=== PATIENT | male | born 1970 | race Caucasian/White ===

== ENCOUNTER 2017-02-04 12:31 | Emergency (ER) | payer MEDICARE, OTHER ==
[~2017-02-04] VITALS: Ht 182.9 cm; Wt 81.6 kg
[2017-02-04] MEDS ORDERED: ONDANSETRON PF 4 MG/2 ML VIAL. IV ONE (13:00)
[2017-02-04] MEDS ORDERED: fentaNYL PF VIAL 100 MCG/2 ML VIAL IV ONE (13:00)
[2017-02-04] MEDS ORDERED: IV NORMAL SALINE 1000ML BAG 1,000 ML IV ONE (13:00)
[2017-02-04] MEDS ORDERED: KETOROLAC TROMETHAMINE 30 MG/ML INJ. IV ONE (13:00)
[2017-02-04 13:05] LABS: BASO % 1 % (0-3); EOS % 3 % (0-3); HEMATOCRIT 46.8 % (39.0-53.0); HEMOGLOBIN 15.8 g/dL (13.0-17.5); LYMPH # 1.9 x10^3/uL (1.0-4.8); LYMPH % 23 % (24-48); MEAN CORPUSCULAR HEMOGLOBIN 30 pg (25-35); MEAN CORPUSCULAR HGB CONC 34 g/dL (31-37); MEAN CORPUSCULAR VOLUME 89 fL (79-100); MONO % 7 % (0-9); NEUT % 66 % (31-73); PLATELET COUNT 278 x10^3/uL (140-400); RED BLOOD COUNT 5.28 x10^6/uL (4.30-5.70); RED CELL DISTRIBUTION WIDTH 13.8 % (11.5-14.5); WHITE BLOOD COUNT 8.3 x10^3/uL (4.0-11.0)
[2017-02-04 13:06] LABS: BASO # 0.1 x10^3/uL (0.0-0.2)
[2017-02-04 13:17] LABS: CALCIUM 8.8 mg/dL (8.5-10.1); CREATININE 1.1 mg/dL (0.7-1.3); GFR 72.1; POTASSIUM 4.2 mmol/L (3.5-5.1)
[2017-02-04 13:22] LABS: ALBUMIN 3.7 g/dL (3.4-5.0); ALBUMIN/GLOBULIN RATIO 1.2 (1.0-1.7); TOTAL BILIRUBIN 0.3 mg/dL (0.2-1.0); TOTAL PROTEIN 6.7 g/dL (6.4-8.2)
[2017-02-04 13:29] LABS: BILIRUBIN,URINE NEGATIVE (NEG); GLUCOSE,URINE NEGATIVE (NEG); NITRITE,URINE NEGATIVE (NEG); PROTEIN,URINE NEGATIVE (NEG-TRACE); UROBILINOGEN,URINE 0.2 mg/dL (0.2 mg/dL)
[2017-02-04 13:35] LABS: BACTERIA,URINE FEW /HPF (0-FEW); SQUAMOUS EPITHELIAL CELL,UR FEW /LPF
--- NOTE | 2017-02-04 13:40 | RAD ---
CT scan of the abdomen and pelvis without contrast 02/04/2017 Clinical history: Left flank pain. Technique: Unenhanced, contiguous, 2 mm axial sections were obtained through the abdomen and pelvis. One or more of the following individualized dose reduction techniques were utilized for this study: 1. Automated exposure control. 2. Adjustment of the mA and/or kV according to patient size. 3. Use of iterative reconstruction technique. Images through the lung bases demonstrate minimal dependent subsegmental atelectasis bilaterally. The liver, spleen, pancreas, adrenal glands and right kidney within normal limits. The left kidney is mildly enlarged. Mild dilatation of the left intrarenal collecting system and left renal pelvis is seen. The left ureter is mildly dilated. Within the proximal/mid left ureter at the L3-4 level a 5 mm ureteral calculus is seen which is causing mild obstruction of the left collecting system. The abdominal aorta tapers normally. The gallbladder is slightly contracted. No free fluid or free air is seen within the abdomen. There is no evidence of bowel obstruction. Air and stool seen throughout the colon. Images through the pelvis demonstrate the urinary bladder distended with urine. Calcifications are seen within the pelvis consistent with phleboliths. No free fluid is seen. Minimal S shaped curvature of the thoracolumbar spine is noted. Degenerative changes are seen involving the thoracic and lumbar spine and both hips. Impression: 5 mm proximal/mid left ureteral calculus is seen which is causing mild obstruction of the left collecting system.
[2017-02-04] MEDS ORDERED: oxyCODONE/APAP 10/325 1 TAB TABLET PO ONE (14:00)
[2017-02-04] MEDS ORDERED: ONDA4TAB7 PO (14:12)
[2017-02-04] MEDS ORDERED: TAMS0.4C97 PO (14:12)
[2017-02-04] MEDS ORDERED: HYDR-963 PO ×2 (14:12→14:16)
[2017-02-04] MEDS ORDERED: ONDA8TAB9 PO (14:12)
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
[2017-02-04 14:30] VITALS: BP 138/90
== END 2017-02-04 14:43 | disposition home or self-care (01) ==
LOC: ER 12:31
DX: N20.1 Calculus of ureter (principal); G89.29 Other chronic pain; Z87.442 Personal history of urinary calculi
CPT/HCPCS: 36415; 74176; 80053; 81001; 85025; 87086; 96361; 96374; 96375; 99285; J1885; J2405; J3010; J7030

== ENCOUNTER 2018-12-29 05:16 | Emergency (ER) | payer MEDICARE ==
[~2018-12-29] VITALS: Ht 182.9 cm; Wt 86.2 kg
[~2018-12-29 05:16] MED LIST: HYDR-3135 PO; ONDA4TAB7 PO; ONDA8TAB9 PO; TAMS0.4C97 PO
[2018-12-29 05:23] VITALS: BP 128/77
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
[2018-12-29 05:35] LABS: BILIRUBIN,URINE NEGATIVE (NEG); COLOR,URINE YELLOW; NITRITE,URINE NEGATIVE (NEG); PROTEIN,URINE NEGATIVE (NEG-TRACE)
[2018-12-29 05:42] LABS: CLARITY,URINE HAZY
[2018-12-29 05:45] LABS: BACTERIA,URINE FEW /HPF (0-FEW)
[2018-12-29 05:46] LABS: WBC,URINE >40 /HPF (0-4)
[2018-12-29] MEDS ORDERED: AZITHROMYCIN 250 MG TABLET. PO ONE (06:00)
[2018-12-29] MEDS ORDERED: cefTRIAXone IM 250 MG VIAL IM ONE (06:00)
[2018-12-29] MEDS ORDERED: CEPH-264 PO (06:05)
== END 2018-12-29 06:20 | disposition home or self-care (01) ==
LOC: ER 05:16
DX: N30.01 Acute cystitis with hematuria (principal); Z20.2 Contact with and (suspected) exposure to infections with a predominantly sexual mode of transmission; G89.29 Other chronic pain; F17.210 Nicotine dependence, cigarettes, uncomplicated; Z87.442 Personal history of urinary calculi
CPT/HCPCS: 81001; 87086; 87491; 87591; 96372; 99284; J0696; Q0144

== ENCOUNTER 2019-08-02 02:02 | Emergency (ER) | payer BC, MEDICARE ==
[~2019-08-02] VITALS: Ht 182.9 cm; Wt 86.4 kg
[~2019-08-02 02:02] MED LIST changes: +CEPH-264 PO
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
--- NOTE | 2019-08-02 02:48 | RAD ---
3 views left elbow AP lateral oblique HISTORY: Pain status post fall The visualized osseous structures appear normal. IMPRESSION: No acute findings. Electronically signed by: Wilder Gilmore III, MD (08/02/2019 2:45 AM) [id number]
[2019-08-02 03:23] VITALS: BP 131/94
[2019-08-02] MEDS ORDERED: KETOROLAC 60 MG/2 ML VIAL. IM ONE (03:30)
== END 2019-08-02 03:25 | disposition home or self-care (01) ==
LOC: ER 02:02
DX: G89.11 Acute pain due to trauma (principal); M25.522 Pain in left elbow; G89.29 Other chronic pain; F12.90 Cannabis use, unspecified, uncomplicated; F17.200 Nicotine dependence, unspecified, uncomplicated; Z87.442 Personal history of urinary calculi; Z98.890 Other specified postprocedural states; W18.39XA Other fall on same level, initial encounter; Y93.89 Activity, other specified; Y92.89 Other specified places as the place of occurrence of the external cause; Y99.8 Other external cause status
CPT/HCPCS: 73080; 96372; 99284; J1885